=== PATIENT | female | born 1990 | race Caucasian/White ===

== ENCOUNTER 2017-01-29 14:49 | Emergency (ER) | payer MEDICARE | END 2017-01-29 19:43 | disposition home or self-care (01) | LOC: ER 14:49 | DX: J98.11 Atelectasis (principal); R01.1 Cardiac murmur, unspecified; J45.909 Unspecified asthma, uncomplicated | CPT/HCPCS: 36415 ==

== ENCOUNTER 2017-02-16 16:11 | Emergency (ER) | payer MEDICARE | END 2017-02-16 16:56 | disposition home or self-care (01) | LOC: ER 16:11 | DX: B34.9 Viral infection, unspecified (principal); J06.9 Acute upper respiratory infection, unspecified; J45.909 Unspecified asthma, uncomplicated; F17.200 Nicotine dependence, unspecified, uncomplicated; Z79.899 Other long term (current) drug therapy; Z88.8 Allergy status to other drugs, medicaments and biological substances | CPT/HCPCS: 87502 ==